=== PATIENT | female | born 1940 | race Caucasian/White ===

== ENCOUNTER → 2017-03-21 | Outpatient (CLI) | payer MEDICARE ==
[2017-03-21 11:54] LABS: CH 27.9; HCT 38.4 % (34.0-46.0); HDW 2.32; HGB 11.8 gm/dL (11.4-16.0); Hypochromasia Moderate; MCH 28.6 pg (25.0-35.0); MCHC 30.7 g/dL (31.0-37.0); MCV 93.2 fL (80.0-100.0); Mean Platelet Volume 6.6; RBC 4.12 m/uL (3.80-5.40); RDW 13.1 % (11.5-15.5); WBC 7.1 k/uL (3.8-10.6)
[2017-03-21 12:08] LABS: Partial Thromboplastin Time 23.2 sec (22.0-30.0); Prothrombin Time 10.2 sec (9.0-12.0)
[2017-03-21 12:19] LABS: ALT 33 U/L (9-52); AST 20 U/L (14-36); Alkaline Phosphatase 89 U/L (38-126); Anion Gap 8 mmol/L; Blood Urea Nitrogen 16 mg/dL (7-17); Calcium 9.7 mg/dL (8.4-10.2); Carbon Dioxide 30 mmol/L (22-30); Chloride 101 mmol/L (98-107); Glucose 103 mg/dL (74-99); Non-African American GFR(MDRD) >60 (>60 ml/min/1.73 sqM); Potassium 4.5 mmol/L (3.5-5.1); Sodium 139 mmol/L (137-145); Total Bilirubin 0.1 mg/dL (0.2-1.3); Total Protein 6.4 g/dL (6.3-8.2)
== END | disposition home or self-care (01) ==
LOC: LABPAT 10:52
PROVIDERS: ATTEND Orthopaedic Surgery
DX: Z01.812 Encounter for preprocedural laboratory examination (principal); Z79.01 Long term (current) use of anticoagulants
CPT/HCPCS: 36415; 80053; 85027; 85610; 85730; 87070

== ENCOUNTER → 2017-03-27 | Outpatient (CLI) | payer MEDICARE ==
[2017-03-27 13:58] LABS: Appearance,Urine Clear (Clear); Bilirubin,Urine Negative (Negative); Glucose,Urine (UA) Negative (Negative); Ketones,Urine Negative (Negative); Leukocyte Esterase,Urine Trace (Negative); Mucus,Urine Rare /hpf; Nitrite,Urine Negative (Negative); Particle Count 691; Protein,Urine Negative (Negative); Specific Gravity,Urine 1.006 (1.001-1.035); UA Billing (MACRO vs. MICRO) MICRO; Urobilinogen,Urine <2.0 mg/dL (<2.0); WBC,Urine 1 /hpf (0-5)
== END | disposition home or self-care (01) ==
LOC: LABWHC1 12:59
PROVIDERS: ATTEND Orthopaedic Surgery
DX: Z01.812 Encounter for preprocedural laboratory examination (principal); Z79.01 Long term (current) use of anticoagulants
CPT/HCPCS: 81001

== ENCOUNTER 2017-04-01 05:51 | Inpatient (IN) | payer MEDICARE ==
[2017-03-22 15:28] VITALS: BMI 37.5
[~2017-04-01 05:51] MED LIST: ACETAMINOPHEN TAB 500 MG TAB PO ONE; MELOXICAM 7.5 MG TAB PO ONE; ROPIVACAINE 246.25 MG, EPINEPHrine 0.5 MG, KETOROLAC 30 MG, cloNIDine HCL/PF 80 MCG, WA... MISCELLANE ONE; TRANEXAMIC ACID 1,000 MG in SODIUM CHLORIDE 0.9% 100 ML IVPB ONE; ceFAZolin 2 GM in SODIUM CHLORIDE 0.9% 100 ML IVPB ONE
[2017-04-01] MEDS ORDERED: HYDROmorphone 0.5 MG/0.5 ML SYRINGE IVP PRN ×2 (05:55→07:30)
[2017-04-01] MEDS ORDERED: LIDOCAINE 1% 20 ML VIAL (10MG/ML) FOR IV START INTRADERMA PRN (05:55)
[2017-04-01] MEDS ORDERED: ONDANSETRON 4 MG/2 ML VIAL IVP ONE (05:55)
[2017-04-01] MEDS ORDERED: fentaNYL (PF) 50 MCG/ML 20 ML VIAL IVP PRN (05:55)
[2017-04-01] MEDS ORDERED: MIDAZOLAM 2 MG/2 ML VIAL IV PRN (05:55)
[2017-04-01] MEDS: LACTATED RINGERS 1,000 ML IV SCH ×2 (06:54→23:42)
[2017-04-01 07:04] LABS: Glucose,Whole Blood 109 mg/dL (75-99)
[2017-04-01] MEDS ORDERED: DIAZEPAM 5 MG TAB PO PRN ×2 (07:30)
[2017-04-01] MEDS ORDERED: HYDROmorphone 1 MG/ML 1 ML SYRINGE IVP PRN (07:30)
[2017-04-01] MEDS ORDERED: HYDROcodone/APAP 7.5-325MG 1 EACH TAB PO PRN (07:30)
[2017-04-01] MEDS ORDERED: MAGNESIUM HYDROXIDE 2,400 MG/10 ML CUP PO PRN (07:30)
[2017-04-01] MEDS ORDERED: hydrOXYzine PAMOATE 25 MG CAP PO PRN (07:30)
[2017-04-01] MEDS ORDERED: NALOXONE 0.4 MG/ML 1 ML VIAL IV PRN (07:30)
[2017-04-01] MEDS ORDERED: TRANEXAMIC ACID 1,000 MG/10 ML VIAL ONE (07:35)
[2017-04-01] MEDS ORDERED: diphenhydrAMINE 50 MG/ML 1 ML VIAL ONE (07:35)
[2017-04-01] MEDS ORDERED: MIDAZOLAM 2 MG/2 ML VIAL ONE (07:35)
[2017-04-01] MEDS ORDERED: fentaNYL (PF) 50 MCG/ML 2 ML AMP ONE (07:35)
[2017-04-01] MEDS ORDERED: PROPOFOL 10 MG/ML 20 ML VIAL IV ONE (07:35)
[2017-04-01] MEDS ORDERED: SODIUM CHLORIDE 0.9% 100 ML BAG ONE (07:35)
[2017-04-01] MEDS ORDERED: ePHEDrine SULFATE/0.9% NACL/PF 50 MG/5 ML SYRINGE IV ONE (07:35)
[2017-04-01] MEDS ORDERED: PHENYLEPHRINE-0.9% NACL SYG 1 MG/10 ML SYRINGE ONE (07:35)
[2017-04-01] MEDS ORDERED: ceFAZolin 3,000 MG in SODIUM CHLORIDE 0.9% IRRIGATIO 3,000 ML IRRIGATION ONE (08:27)
[2017-04-01] MEDS ORDERED: LACTATED RINGERS 1,000 ML IV ONE (08:50)
--- NOTE | 2017-04-01 09:25 | P.OP ---
Date of Procedure: 04/01/17 Preoperative Diagnosis: Severe osteoarthritis left hip Postoperative Diagnosis: Severe osteoarthritis left hip Procedure(s) Performed: Left total hip arthroplasty with a direct anterior approach Implants: Blanc and nephew Polarstem size 1 standard Blanc & Nephew R3, 3 hole acetabular shell, 52 mm Blanc [employer] Nephew reflection 6.5 mm cancellus screw, 20 mm 2 Blanc [employer] Nephew R3, XLPE 20 acetabular liner Blanc & Nephew Oxinium femoral head 36 m, +0 All components were press-fit. The articulation is Oxinium on polyethylene. Anesthesia: spinal Surgeon: Glynn Freeman Turret Lathe Set Up Operator #1: Kari Marsh Estimated Blood Loss (ml): 50 Pathology: other (Femoral head) Condition: stable Disposition: PACU Indications for Procedure: After failure of conservative treatment we discussed the surgical and nonsurgical treatment options at length. Patient wishes to proceed with a total hip arthroplasty with a direct anterior approach. Complications specific to this procedure were discussed at length, including but not limited to infection, leg length discrepancy, dislocation, and nerve injury. Patient is aware of all these complications and informed consent was obtained Operative Findings: The operative findings are consistent with severe osteoarthritis of the left hip Description of Procedure: Patient was seen and evaluated in the preoperative area, consent was reviewed, and the surgical site was marked with a skin marker. Patient was then brought to the operating room and given prophylactic antibiotics intravenously. 1 g of Tranexamic acid was also given. A spinal anesthetic was administered by the anesthesia department. The patient was then placed on the [place] table with the bony prominences well-padded. The hip area was then prepped and draped in usual sterile fashion. A universal timeout was then performed, which confirmed the patient's name, surgical site, ALLERGIES, and procedure being performed. Next the incision site was located at 1 cm distal and 1 cm lateral to the anterior superior iliac spine. The skin and subcutaneous tissues were sharply incised. Incision was carefully dissected down to the fascia overlying the tensor fascia michaelle muscle. This fascia was then incised in line with the incision. Next, using blunt finger dissection, the tensor fascia michaelle muscle was dissected off its investing fascia. The muscle was then carefully retracted laterally with a cobra retractor over the lateral neck of the femur. Next, the circumflex vessels were identified and cauterized using the AquaMantis device. The anterior hip capsule was then exposed. The capsule was then opened and an inverted T fashion. Cobra retractors were then placed intracapsularly. The proximal femur was then visualized. The femoral neck was then osteotomized appropriate level above the lesser trochanter. Small amount of traction was placed with the [place] table. A small wedge of bone was then removed from the remaining femoral head. Next, using a corkscrew femoral head was easily removed from the acetabulum. On gross visual inspection, the femoral head had complete loss of articular cartilage in multiple periarticular osteophytes. Attention was then turned to the acetabulum. the acetabulum was exposed and any remaining labrum was excised. Sequential reaming of the acetabulum was performed using fluoroscopic guidance. When the appropriate size was reached, a trial was then placed. The position and fit of the trial was checked with fluoroscopy. The trial was then removed. Then, using fluoroscopic guidance, the final implant was impacted at 20 of anteversion and 40 of abduction, and fully seated in the acetabulum. 2 screws were then placed in the acetabulum. Again fluoroscopy was used to check position of the screws. Next, the liner was then impacted, with a 20 elevated liner located in the anterior superior quadrant. Component locking was confirmed. Attention was then directed to the femur. With the aid of the [place] table, the femur was externally rotated to approximately 130, extended, and abducted under the opposite leg. A side hook was then placed under the proximal femur, and the side hook elevator was used to elevate the proximal femur. Retractors were then placed. A capsular release was performed, as well as a release of the conjoined tendon, which afforded excellent visualization of the proximal femur. Next, a box osteotome was used to lateralize the proximal femur. A spare hand carding was then used to locate the femoral canal. Sequential broaching was then performed with appropriate size which afforded excellent fixation in the proximal femur. A trial was then placed with appropriate head and neck, and the hip was gently reduced with the aid of the [place] table. Fluoroscopy was then used to check position of the components, as well as to ensure equal leg lengths. The hip was then gently dislocated and the trials were then removed. Final implants were then impacted and the hip was again reduced. Final fluoroscopic x-rays confirmed that the components were in anatomic position, as well as equal leg lengths. The hip was also taken through range of motion, and found to be stable. The hip was then copiously irrigated with antibiotic solution with pulsatile lavage. The hip was then irrigated with Irrisept solution. The soft tissues were then injected with a ropivacaine solution, which consisted of 246.25 mg of ropivacaine, 0.5 mg of epinephrine, 30 mg of Toradol, 80 g of clonidine, and 48.45 mL of sterile water, for a total of 100 mL of fluid injected. A second dose of 1 g of Tranexamic acid was also given. the fascia was then closed with 2-0 strata fix suture. The subcutaneous tissue was closed with 3-0 Vicryl. The subcuticular tissue was closed with 3-0 strata fix suture. The skin was then closed with Dermabond tape. The patient was then transferred to the recovery room in stable condition. The graduate teaching assistant ARASH Trevizo was required due to the complexity of surgery, and the need for skilled certified surgical tech/first assistant for positioning, draping, exposure, retraction, and closure of the wound.
--- NOTE | 2017-04-01 09:59 | FL ---
EXAMINATION TYPE: FL guidance operating room DATE OF EXAM: 04/01/2017 CLINICAL HISTORY: Hip pain TECHNIQUE: Fluoroscopy. COMPARISON: None. FINDINGS/IMPRESSION: Fluoroscopic guidance was provided during procedure performed by Dr. Freeman. A total of 26 seconds of fluoroscopic time was utilized during the procedure and 2 spot images was a cquired.
--- NOTE | 2017-04-01 10:03 | XR ---
EXAMINATION TYPE: XR Hip Limited LT, 2 fluoroscopic views. DATE OF EXAM: 04/01/2017 COMPARISON: NONE HISTORY: 76-year-old female anterior left hip replacement FINDINGS: 2 views demonstrating left hip total arthroplasty. One images centered over the lower midline pelvis. A right hip total arthroplasty is partially visualized. IMPRESSION: Intraoperative fluoroscopy for left hip total arthroplasty.
--- NOTE | 2017-04-01 10:13 | XR ---
EXAMINATION TYPE: XR Hip Limited LT DATE OF EXAM: 04/01/2017 COMPARISON: NONE HISTORY: 76-year-old female status post hip surgery, assess surgical alignment TECHNIQUE: Single portable AP view FINDINGS: Image shows placement of total left hip arthroplasty. Both acetabular cup and femoral short stem comp onents are well seated without periprosthetic fracture. Alignment grossly anatomic. Soft tissue air r elated to recent operation. IMPRESSION: Uncomplicated postoperative appearance left total hip arthroplasty.
[2017-04-01] MEDS: SODIUM CHLORIDE 0.9% 1,000 ML IV SCH ×2 (10:39→11:03)
[2017-04-01] MEDS: HYDROcodone/APAP 7.5-325MG 1 EACH TAB PO PRN ×3 (11:39→22:41)
[2017-04-01] MEDS: HYDROmorphone 0.5 MG/0.5 ML SYRINGE IVP PRN ×2 (12:32→14:40)
[2017-04-01] MEDS: ceFAZolin 2 GM in SODIUM CHLORIDE 0.9% 100 ML IVPB SCH ×2 (14:10→22:42)
--- NOTE | 2017-04-01 16:01 | P.CONS ---
History of Present Illness - Reason for Consult Adrenal insufficiency - History of Present Illness Patient is a pleasant 74-year-old female admitted for elective left hip arthroplasty anterior approach, does have history of 80 renal insufficiency secondary to long-term use of prednisone. Patient at this point of time denied any fever, chills her pain is well-controlled DVT prophylaxis as per primary service. Patient doesn't have a Villalba catheter did not pass gas yet postoperative day 0 no labs available at this time. Review of Systems REVIEW OF SYSTEMS: CONSTITUTIONAL: No fever, no malaise, no fatigue. HEENT: No recent visual problems or hearing problems. Denied any sore throat. CARDIOVASCULAR: No chest pain, orthopnea, PND, no palpitations, no syncope. PULMONARY: No shortness of breath, no cough, no hemoptysis. GASTROINTESTINAL: No diarrhea, no nausea, no vomiting, no abdominal pain. Normoactive bowel sounds. NEUROLOGICAL: No headaches, no weakness, no numbness. HEMATOLOGICAL: Denies any bleeding or petechiae. GENITOURINARY: Denies any burning micturition, frequency, or urgency. MUSCULOSKELETAL/RHEUMATOLOGICAL: Denies any joint pain, swelling, or any muscle pain. ENDOCRINE: Denies any polyuria or polydipsia. The rest of the 14-point review of systems is negative. Past Medical History Past Medical History: COPD, GERD/Reflux, Hearing Disorder / Deafness, Hypertension, Osteoarthritis (OA) Additional Past Medical History / Comment(s): HX PARATHYROID PROB, UNDER CONTROL. HX BENIGN COLON TUMOR; DIVERTICULITIS. VARICOSE VEINS. History of Any Multi-Drug Resistant Organisms: None Reported Past Surgical History: Bowel Resection, Ear Surgery, Hysterectomy, Joint Replacement Additional Past Surgical History / Comment(s): TOTAL RT HIP 2000. 2 BOWEL RESECTION. LT EAR SURG. Ant TLH Past Anesthesia/Blood Transfusion Reactions: No Reported Reaction Past Psychological History: No Psychological Hx Reported Smoking Status: Former smoker Past Alcohol Use History: None Reported Additional Past Alcohol Use History / Comment(s): SMOKED 40+ YEARS, 1 PPD, QUIT 2005. Past Drug Use History: None Reported - Past Family History Father Family Medical History: Cancer Medications and Allergies Home Medications Medication Instructions Recorded Confirmed Type Albuterol Inhaler [Ventolin Hfa 1 - 2 puff INHALATION RT-Q6H PRN 03/22/17 History Inhaler] Albuterol Nebulized [Ventolin 2.5 mg INHALATION RT-BID 03/22/17 04/01/17 History Nebulized] Aspirin EC [Ecotrin Low Dose] 81 mg PO DAILY 03/22/17 04/01/17 History Budesonide [Pulmicort] 0.5 mg INHALATION RT-BID 03/22/17 04/01/17 History Cephalexin [Keflex] 500 mg PO DIRECTED PRN 03/22/17 04/01/17 History Cholecalciferol [Vitamin D3] 5,000 unit PO TUFR 03/22/17 04/01/17 History Enalapril [Vasotec] 5 mg PO BID 03/22/17 04/01/17 History Furosemide [Lasix] 20 mg PO DAILY 03/22/17 04/01/17 History HYDROcodone/APAP 5-325MG [[place] 1 tab PO TID PRN 03/22/17 04/01/17 History 5-325] Hydrocortisone [Cortef] 20 mg PO DAILY 03/22/17 04/01/17 History Multivitamins, Thera [Multivitamin 1 tab PO DAILY 03/22/17 04/01/17 History (formulary)] Ranitidine HCl 150 mg PO HS 03/22/17 04/01/17 History Salmeterol Xinafoate [Serevent 1 puff INHALATION RT-BID 03/22/17 04/01/17 History Diskus] Theophylline 24 Hour [Francis-24] 300 mg PO BID 03/22/17 04/01/17 History Tiotropium Wallace [Spiriva] 1 cap INHALATION RT-DAILY 03/22/17 04/01/17 History traMADol HCL [Ultram] 50 mg PO BID PRN 03/22/17 04/01/17 History Allergies Allergy/AdvReac Type Severity Reaction Status Date / Time No Known Allergies Allergy Verified 04/01/17 09:46 Physical Exam Vitals: Vital Signs Temp Pulse Pulse Pulse Resp BP Pulse Ox 04/01/17 15:55 97.8 F 70 15 106/64 99 04/01/17 12:45 112/53 04/01/17 12:15 123/60 04/01/17 11:45 64 159/73 04/01/17 11:30 65 166/71 04/01/17 11:15 146/64 04/01/17 11:00 61 115/67 10/16/17 10:45 61 16 137/62 100 04/01/17 10:30 68 18 117/57 100 04/01/17 10:15 56 L 18 122/60 04/01/17 10:00 64 18 125/58 100 04/01/17 09:45 96.7 F L 68 16 115/72 98 04/01/17 06:30 97.7 F 73 18 161/58 96 Intake and Output 04/01/17 04/01/17 04/01/17 06:59 14:59 22:59 Intake Total 200 996 Output Total 200 Balance 200 796 Intake: IV 200 996 Sodium Chloride 0.9% 1, 195 000 ml @ 65 mls/hr IV . [id number] ROSANNA Rx#:[id number] Output: Urine 150 Estimated Blood Loss 50 Other: Weight 92.986 kg Patient Weight 04/02/17 06:59 Weight 92.986 kg PHYSICAL EXAMINATION: GENERAL: The patient is alert and oriented x3, not in any acute distress. Well developed, well nourished. HEENT: Pupils are round and equally reacting to light. EOMI. No scleral icterus. No conjunctival pallor. Normocephalic, atraumatic. No pharyngeal erythema. No thyromegaly. CARDIOVASCULAR: S1 and S2 present. No murmurs, rubs, or gallops. PULMONARY: Chest is clear to auscultation, no wheezing or crackles. ABDOMEN: Soft, nontender, nondistended, normoactive bowel sounds. No palpable organomegaly. MUSCULOSKELETAL: Deferred to orthopedic surgery EXTREMITIES: No cyanosis, clubbing, or pedal edema. NEUROLOGICAL: Gross neurological examination did not reveal any focal deficits. SKIN: No rashes. Results Labs: Abnormal Lab Results - Last 24 Hours (Table) 04/01/17 Range/Units 07:02 POC Glucose (mg/dL) 109 H (75-99) mg/dL Assessment and Plan Plan: #1 postoperative day 0 left hip arthroplasty: Pain management and DVT prophylaxis as per primary service. #2 COPD without any acute exacerbation at this point of time. 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 #4 hypertension: Hold off on KEYSHAWN inhibitor to avoid perioperative hypotension continue with beta bahman. #5 severe osteoarthritis #6 obesity Thank you for letting me participate in this patient's care continue to follow the patient on as-needed basis.
[2017-04-01] MEDS: IPRATROPIUM 0.5 MG/2.5 ML NEBU INHALATION SCH (19:48)
[2017-04-01] MEDS: BUDESONIDE 0.5 MG/2 ML NEBU INHALATION SCH (19:48)
[2017-04-01] MEDS: ALBUTEROL NEBULIZED 2.5 MG/3 ML INHALATION PRN (19:48)
[2017-04-01] MEDS: FORMOTEROL FUMARATE 20 MCG/2 ML NEBU INHALATION SCH (19:48)
[2017-04-01] MEDS: SENNOSIDES-DOCUSATE SODIUM 1 EACH TAB PO SCH (20:25)
[2017-04-01] MEDS: ASPIRIN 325 MG TAB PO SCH (20:27)
[2017-04-01] MEDS: THEOPHYLLINE 24 HOUR 300 MG CAP.ER.24H PO SCH (20:27)
[2017-04-02] MEDS: ONDANSETRON 4 MG/2 ML VIAL IVP PRN (05:11)
[2017-04-02] MEDS: HYDROmorphone 0.5 MG/0.5 ML SYRINGE IVP PRN (07:10)
[2017-04-02] MEDS: FORMOTEROL FUMARATE 20 MCG/2 ML NEBU INHALATION SCH ×2 (07:14→21:24)
[2017-04-02] MEDS: IPRATROPIUM 0.5 MG/2.5 ML NEBU INHALATION SCH ×4 (07:14→21:24)
[2017-04-02] MEDS: BUDESONIDE 0.5 MG/2 ML NEBU INHALATION SCH ×3 (07:14→21:24)
[2017-04-02] MEDS ORDERED: METOCLOPRAMIDE 5 MG/ML 2 ML VIAL IVP PRN (07:17)
[2017-04-02] MEDS: HYDROcodone/APAP 7.5-325MG 1 EACH TAB PO PRN ×3 (07:27→18:51)
[2017-04-02 08:18] LABS: Basophils # (A) 0.1 k/uL (0-0.2); Basophils % (A) 1 %; CH 28.4; CHCM 30.4; Eosinophils # (A) 0.4 k/uL (0-0.7); Eosinophils % (A) 5 %; HCT 36.4 % (34.0-46.0); HDW 2.22; HGB 10.9 gm/dL (11.4-16.0); Hypochromasia Slight; Luc % (Auto) 3; Lymphocytes % (A) 13 %; MCH 28.2 pg (25.0-35.0); MCHC 30.1 g/dL (31.0-37.0); Mean Platelet Volume 6.3; Monocytes # (A) 0.5 k/uL (0-1.0); Monocytes % (A) 6 %; Neutrophils # (A) 5.6 k/uL (1.3-7.7); Neutrophils % (A) 73 %; RBC 3.87 m/uL (3.80-5.40); RDW 13.5 % (11.5-15.5); WBC 7.7 k/uL (3.8-10.6); WBC (Perox) 7.93
[2017-04-02] MEDS: ASPIRIN 325 MG TAB PO SCH ×2 (08:33→20:36)
[2017-04-02] MEDS: THEOPHYLLINE 24 HOUR 300 MG CAP.ER.24H PO SCH ×2 (08:33→20:36)
[2017-04-02] MEDS: MELOXICAM 7.5 MG TAB PO SCH (08:33)
[2017-04-02] MEDS ORDERED: HYDROCORTISONE 10 MG TAB PO SCH (09:00)
[2017-04-02] MEDS ORDERED: NON-FORMULARY DRUG (Aspirin Ec 81 MG) PO SCH (09:00)
[2017-04-02] MEDS: SODIUM CHLORIDE 0.9% 1,000 ML IV SCH (09:47)
--- NOTE | 2017-04-02 09:54 | P.PN ---
Subjective Progress Note Date: 04/02/17 This is a 76-year-old female who is status post left total hip arthroplasty. This is postoperative day #1. Patient is seen and evaluated at bedside with Dr. Glynn Fremean. Patient admits to some mild nausea from the pain medication but otherwise has no new complaints today. Objective - Vital Signs Vital signs: Vital Signs Temp 97.6 F 04/02/17 07:07 Pulse 79 04/02/17 07:07 Resp 18 04/02/17 07:30 BP 133/60 04/02/17 07:07 Pulse Ox 94 L 04/02/17 07:07 Intake & Output 04/01/17 04/02/17 04/02/17 18:59 06:59 18:59 Intake Total 996 1280 Output Total 200 1 Balance 796 1279 Weight 92.986 kg Intake: IV 996 130 Sodium Chloride 0.9% 1, 195 130 000 ml @ 65 mls/hr IV . [id number] ROSANNA Rx#:[id number] Intake, IV Titration 650 Amount Sodium Chloride 0.9% 1, 650 000 ml @ 65 mls/hr IV . [id number] ROSANNA Rx#:[id number] Oral 500 Output: Urine 150 1 Estimated Blood Loss 50 Other: Voiding Method Toilet # Voids 1 1 - Exam Vital signs are stable. Patient is in no acute distress and is alert and oriented 3. Calf is soft and nontender. Dressing is clean, dry, and intact. Neurovascular status intact. Patient has full foot and ankle motion. - Labs CBC & Chem 7: 04/02/17 06:55 Labs: Abnormal Lab Results - Last 24 Hours (Table) 04/02/17 Range/Units 06:55 Hgb 10.9 L (11.4-16.0) gm/dL MCHC 30.1 L (31.0-37.0) g/dL Assessment and Plan (1) Primary osteoarthritis of left hip Status: Acute (2) S/P total hip arthroplasty Status: Acute Plan: Continue routine postop care. Continue antocoagulation. Weightbearing as tolerated with a walker Daily dressing changes, keep incision clean and dry Possible discharge to rehab .
[2017-04-02] MEDS ORDERED: CEPHALEXIN 500 MG CAP PO PRN (15:53)
[2017-04-02] MEDS ORDERED: IPRATROPIUM-ALBUTEROL 3 ML NEB INHALATION PRN ×2 (15:54)
--- NOTE | 2017-04-02 16:09 | P.PN ---
Subjective Progress Note Date: 04/02/17 Progress note being dictated for Dr. Tucker. Interval history:Patient is a pleasant 74-year-old female admitted for elective left hip arthroplasty anterior approach, does have history of 81 renal insufficiency secondary to long-term use of prednisone. Patient at this point of time denied any fever, chills her pain is well-controlled DVT prophylaxis as per primary service. Patient doesn't have a Villalba catheter did not pass gas yet postoperative day 0 no labs available at this time. 04/02/2017: Early this morning had a headache, mild nausea which has subsided. Pain controlled. Passing flatus, no bowel movement. Good diet intake. Maintaining O2 sats of 94% on 3 L nasal cannula; patient normally wears 2 L at home. Vital signs stable. Afebrile. Objective - Vital Signs Vital signs: Vital Signs Temp 97.6 F 04/02/17 07:07 Pulse 71 04/02/17 12:56 Resp 18 04/02/17 07:30 BP 133/60 04/02/17 07:07 Pulse Ox 94 L 04/02/17 07:07 Intake & Output 04/01/17 04/02/17 04/02/17 18:59 06:59 18:59 Intake Total 996 1280 Output Total 200 1 Balance 796 1279 Weight 92.986 kg Intake: IV 996 130 Sodium Chloride 0.9% 1, 195 130 000 ml @ 65 mls/hr IV . [id number] ROSANNA Rx#:[id number] Intake, IV Titration 650 Amount Sodium Chloride 0.9% 1, 650 000 ml @ 65 mls/hr IV . [id number] ROSANNA Rx#:[id number] Oral 500 Output: Urine 150 1 Estimated Blood Loss 50 Other: Voiding Method Toilet # Voids 1 1 1 - Exam PHYSICAL EXAM: VITAL SIGNS: [As above] GENERAL: Sitting up in bed, no acute distress HEENT: Conjunctivae normal. eyes normal. Oral mucosa moist NECK: No JVD. No thyroid enlargement. No LNs CARDIOVASCULAR: S1, S2 muffled. No murmur RESPIRATION: Breath sounds diminished in the bases. No rhonchi or crackles. No bronchial breathing. ABDOMEN: Soft, nontender . No guarding. no masses palpable. Bowel sounds heard. MUSCULOSKELETAL: Deferred to orthopedic surgeon EXTREMITIES: No cyanosis, clubbing or pedal edema PSYCHIATRY: Alert and oriented -3, mood and affect normal. NERVOUS SYSTEM: Cranial N 2-12 grossly normal. Moves all 4 limbs. Diffuse weakness No focal deficits. No sensory deficit. Skin: no ulcer no rash - Labs CBC & Chem 7: 04/02/17 06:55 Labs: Abnormal Lab Results - Last 24 Hours (Table) 04/02/17 Range/Units 06:55 Hgb 10.9 L (11.4-16.0) gm/dL MCHC 30.1 L (31.0-37.0) g/dL Assessment and Plan Assessment: #1 status post left hip arthroplasty: Pain management and DVT prophylaxis as per primary service. #2 COPD without any acute exacerbation at this point of time. 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 #4 hypertension: Hold off on KEYSHAWN inhibitor to avoid perioperative hypotension continue with beta bahman. #5 severe osteoarthritis #6 obesity, BMI is 37.5 Plan: Continue current medication regime ,monitoring and symptomatic treatment. Aggressive pulmonary toileting. Discharge planning in progress for subacute rehab as per orthopedics, possibly tomorrow. The impression and plan of care has been dictated as directed. : I performed a history and examination of this patient, discussed the same with the dictator. I agree with the dictator's note ,documented as a scribe. Any additional findings or plans will be noted.
[2017-04-02] MEDS: FAMOTIDINE 20 MG TAB PO SCH (17:10)
[2017-04-02] MEDS: SENNOSIDES-DOCUSATE SODIUM 1 EACH TAB PO SCH (20:37)
[2017-04-02] MEDS: ALBUTEROL NEBULIZED 2.5 MG/3 ML INHALATION PRN (21:24)
[2017-04-03] MEDS: ONDANSETRON 4 MG/2 ML VIAL IVP PRN (05:21)
[2017-04-03] MEDS: LACTATED RINGERS 1,000 ML IV SCH (05:30)
[2017-04-03] MEDS: SODIUM CHLORIDE 0.9% 1,000 ML IV SCH ×2 (05:30→23:30)
[2017-04-03] MEDS: BUDESONIDE 0.5 MG/2 ML NEBU INHALATION SCH ×2 (07:26→19:53)
[2017-04-03] MEDS: IPRATROPIUM 0.5 MG/2.5 ML NEBU INHALATION SCH ×4 (07:26→19:53)
[2017-04-03] MEDS: FORMOTEROL FUMARATE 20 MCG/2 ML NEBU INHALATION SCH ×2 (07:30→19:53)
[2017-04-03] MEDS: HYDROCORTISONE 10 MG TAB PO SCH ×3 (08:22→13:09)
[2017-04-03] MEDS: FUROSEMIDE 20 MG TAB PO SCH (08:23)
[2017-04-03] MEDS: MELOXICAM 7.5 MG TAB PO SCH (08:23)
[2017-04-03] MEDS: ASPIRIN 325 MG TAB PO SCH ×2 (08:23→21:57)
[2017-04-03] MEDS: THEOPHYLLINE 24 HOUR 300 MG CAP.ER.24H PO SCH ×2 (08:24→20:29)
--- NOTE | 2017-04-03 09:26 | P.PN ---
Subjective Progress Note Date: 04/03/17 This is a 76-year-old female who is status post left total hip arthroplasty. This is postoperative day #2. Patient is seen and evaluated at bedside with Dr. Glynn Freeman. Patient admits to some continued soreness of the left hip but states this is tolerable. Patient states she has been up and walking with physical therapy and she is feeling better today. Patient has no new complaints today. Objective - Vital Signs Vital signs: Vital Signs Temp 98.6 F 04/03/17 01:00 Pulse 104 H 04/03/17 08:12 Resp 20 04/03/17 08:11 BP 121/54 04/03/17 08:12 Pulse Ox 93 L 04/03/17 08:11 Intake & Output 04/02/17 04/03/17 04/03/17 18:59 06:59 18:59 Intake Total 520 Balance 520 Intake: IV 520 Sodium Chloride 0.9% 1, 520 000 ml @ 65 mls/hr IV . [id number] ROSANNA Rx#:[id number] Other: Voiding Method Toilet # Voids 1 3 - Exam Vital signs are stable. Patient is in no acute distress and is alert and oriented 3. Calf is soft and nontender. Dressing is clean, dry, and intact. Neurovascular status intact. Patient has full foot and ankle motion. - Labs CBC & Chem 7: 04/02/17 06:55 Assessment and Plan (1) Primary osteoarthritis of left hip Current Visit: Yes Status: Acute Code(s): M16.12 - UNILATERAL PRIMARY OSTEOARTHRITIS, LEFT HIP SNOMED Code(s): 340556055 (2) S/P total hip arthroplasty Current Visit: Yes Status: Acute Code(s): Z96.649 - PRESENCE OF UNSPECIFIED ARTIFICIAL HIP JOINT SNOMED Code(s): 573387119421 Plan: Continue routine postop care. Continue antocoagulation. Weightbearing as tolerated with a walker Daily dressing changes, keep incision clean and dry Likely discharge to rehab .
[2017-04-03] MEDS: traMADol 50 MG TAB PO PRN (11:27)
[2017-04-03 13:18] LABS: Appearance,Urine Clear (Clear); Bilirubin,Urine Negative (Negative); Glucose,Urine (UA) Negative (Negative); Ketones,Urine Negative (Negative); Leukocyte Esterase,Urine Negative (Negative); Nitrite,Urine Negative (Negative); Protein,Urine Negative (Negative); Specific Gravity,Urine 1.004 (1.001-1.035); UA Billing (MACRO vs. MICRO) CHEM; Urobilinogen,Urine <2.0 mg/dL (<2.0)
--- NOTE | 2017-04-03 13:55 | XR ---
EXAMINATION TYPE: XR chest 2V DATE OF EXAM: 04/03/2017 COMPARISON: NONE INDICATION: Elevated temperature TECHNIQUE: Frontal and lateral views of the chest are obtained. FINDINGS: The heart size is normal. The pulmonary vasculature is normal. The lungs are clear. IMPRESSION: 1. No acute pulmonary process.
[2017-04-03 14:07] LABS: Basophils # (A) 0.1 k/uL (0-0.2); Basophils % (A) 1 %; CH 28.6; CHCM 30.7; Eosinophils # (A) 0.1 k/uL (0-0.7); Eosinophils % (A) 1 %; HCT 34.2 % (34.0-46.0); HDW 2.22; HGB 10.3 gm/dL (11.4-16.0); Hypochromasia Slight; Luc # (Auto) 0.16; Luc % (Auto) 2; Lymphocytes # (A) 0.7 k/uL (1.0-4.8); Lymphocytes % (A) 7 %; MCH 28.1 pg (25.0-35.0); MCV 93.7 fL (80.0-100.0); Mean Platelet Volume 6.6; Monocytes # (A) 0.6 k/uL (0-1.0); Monocytes % (A) 6 %; Neutrophils % (A) 84 %; RBC 3.65 m/uL (3.80-5.40); RDW 13.3 % (11.5-15.5); WBC 10.6 k/uL (3.8-10.6); WBC (Perox) 10.45
[2017-04-03 14:11] LABS: Anion Gap 6 mmol/L; Blood Urea Nitrogen 12 mg/dL (7-17); Calcium 9.5 mg/dL (8.4-10.2); Carbon Dioxide 33 mmol/L (22-30); Chloride 93 mmol/L (98-107); Glucose 194 mg/dL (74-99); Magnesium 1.5 mg/dL (1.6-2.3); Non-African American GFR(MDRD) >60 (>60 ml/min/1.73 sqM); Potassium 4.4 mmol/L (3.5-5.1); Sodium 132 mmol/L (137-145)
[2017-04-03] MEDS ORDERED: Magnesium Replacement Protocol 1 EACH MISC MISCELLANE PRN (16:29)
[2017-04-03] MEDS: FAMOTIDINE 20 MG TAB PO SCH (17:29)
[2017-04-03] MEDS: NYSTATIN 100,000 UNIT/ML SUSP 500,000 UNIT/5 ML CUP PO SCH ×2 (17:30→20:31)
--- NOTE | 2017-04-03 18:10 | P.PN ---
Subjective Progress Note Date: 04/03/17 Progress note being dictated for Dr. Tucker. Interval history:Patient is a pleasant 74-year-old female admitted for elective left hip arthroplasty anterior approach, does have history of 80 renal insufficiency secondary to long-term use of prednisone. Patient at this point of time denied any fever, chills her pain is well-controlled DVT prophylaxis as per primary service. Patient doesn't have a Villalba catheter did not pass gas yet postoperative day 0 no labs available at this time. 04/02/2017: Early this morning had a headache, mild nausea which has subsided. Pain controlled. Passing flatus, no bowel movement. Good diet intake. Maintaining O2 sats of 94% on 3 L nasal cannula; patient normally wears 2 L at home. Vital signs stable. Afebrile. 04/03/2017) ambulated in hallway with physical therapy, tolerating increase in exertion well, denies lightheadedness dizziness or focal deficits. No bowel movement, passing flatus. Denies chest pain, palpitations or increased shortness of breath. Denies cough. T-max 100.6, normal WBC. Magnesium 1.5. Pain controlled. Objective - Vital Signs Vital signs: Vital Signs Temp 98 F 04/03/17 15:21 Pulse 76 04/03/17 15:33 Resp 17 04/03/17 15:21 BP 120/71 04/03/17 15:21 Pulse Ox 95 04/03/17 15:21 Intake & Output 04/02/17 04/03/17 04/03/17 18:59 06:59 18:59 Intake Total 520 Balance 520 Intake: IV 520 Sodium Chloride 0.9% 1, 520 000 ml @ 65 mls/hr IV . [id number] [facility] Rx#:[id number] Other: Voiding Method Toilet Toilet # Voids 1 3 - Exam PHYSICAL EXAM: VITAL SIGNS: [As above] GENERAL: Sitting up at side of bed, no acute distress HEENT: Conjunctivae normal. eyes normal. Oral mucosa moist, mild thrush NECK: No JVD. No thyroid enlargement. No LNs CARDIOVASCULAR: S1, S2 muffled. No murmur RESPIRATION: Breath sounds diminished in the bases. No rhonchi or crackles. ABDOMEN: Soft, nontender . No guarding. no masses palpable. Bowel sounds heard. MUSCULOSKELETAL: Deferred to orthopedic surgeon EXTREMITIES: No cyanosis, clubbing or pedal edema PSYCHIATRY: Alert and oriented -3, mood and affect normal. NERVOUS SYSTEM: Cranial N 2-12 grossly normal. Moves all 4 limbs. Diffuse weakness No focal deficits. No sensory deficit. - Labs CBC & Chem 7: 04/03/17 13:26 04/03/17 13:26 Labs: Abnormal Lab Results - Last 24 Hours (Table) 04/03/17 04/03/17 Range/Units 13:26 13:26 RBC 3.65 L (3.80-5.40) m/uL Hgb 10.3 L (11.4-16.0) gm/dL MCHC 30.0 L (31.0-37.0) g/dL Neutrophils # 9.0 H (1.3-7.7) k/uL Lymphocytes # 0.7 L (1.0-4.8) k/uL Sodium 132 L (137-145) mmol/L Chloride 93 L (98-107) mmol/L Carbon Dioxide 33 H (22-30) mmol/L Glucose 194 H (74-99) mg/dL Magnesium 1.5 L (1.6-2.3) mg/dL Assessment and Plan Assessment: #1 status post left hip arthroplasty: Pain management and DVT prophylaxis as per primary service. #2 COPD without any acute exacerbation at this point of time. 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 #4 hypertension: Hold off on KEYSHAWN inhibitor to avoid perioperative hypotension continue with beta bahman. #5 severe osteoarthritis #6 obesity, BMI is 37.5 Plan: Continue current medication regime ,monitoring and symptomatic treatment. Aggressive pulmonary toileting. Pancultured given fever, chest x-ray ordered. Discharge planning in progress for subacute rehab as per orthopedics, possibly tomorrow. The impression and plan of care has been dictated as directed. : I performed a history and examination of this patient, discussed the same with the dictator. I agree with the dictator's note ,documented as a scribe. Any additional findings or plans will be noted.
[2017-04-03] MEDS: MAGNESIUM SULFATE-D5W PMX 1 GM in DEXTROSE/WATER 1 100ML.BAG IVPB SCH ×2 (19:16→21:57)
[2017-04-03] MEDS: ALBUTEROL NEBULIZED 2.5 MG/3 ML INHALATION PRN (19:53)
[2017-04-03] MEDS: SENNOSIDES-DOCUSATE SODIUM 1 EACH TAB PO SCH (20:29)
[2017-04-04 06:54] LABS: Basophils % (A) 1 %; CH 28.3; CHCM 30.9; Eosinophils # (A) 0.3 k/uL (0-0.7); Eosinophils % (A) 4 %; HCT 32.7 % (34.0-46.0); HDW 2.24; Hypochromasia Slight; Luc # (Auto) 0.23; Luc % (Auto) 3; Lymphocytes # (A) 1.1 k/uL (1.0-4.8); Lymphocytes % (A) 13 %; MCH 28.1 pg (25.0-35.0); MCHC 30.6 g/dL (31.0-37.0); MCV 92.1 fL (80.0-100.0); Mean Platelet Volume 6.6; Monocytes # (A) 0.6 k/uL (0-1.0); Monocytes % (A) 7 %; Neutrophils # (A) 6.3 k/uL (1.3-7.7); Neutrophils % (A) 73 %; RBC 3.55 m/uL (3.80-5.40); RDW 13.4 % (11.5-15.5); WBC 8.6 k/uL (3.8-10.6); WBC (Perox) 8.19
[2017-04-04 07:19] VITALS: BP 134/73; RESP 18; TEMP 98.5
[2017-04-04] MEDS: IPRATROPIUM 0.5 MG/2.5 ML NEBU INHALATION SCH ×2 (08:04→12:24)
[2017-04-04] MEDS: FORMOTEROL FUMARATE 20 MCG/2 ML NEBU INHALATION SCH (08:04)
[2017-04-04] MEDS: BUDESONIDE 0.5 MG/2 ML NEBU INHALATION SCH (08:04)
--- NOTE | 2017-04-04 08:46 | P.DS ---
Providers Date of admission: 04/01/17 05:51 Expected date of discharge: 04/04/17 Attending physician: Glynn Freeman Consults: 04/01/17 07:30 Consult Physician Routine Consulting Provider: Corina Almaguer Consult Reason/Comments: medical management Do you want consulting provider notified?: Yes Primary care physician: Dorene Longo - Discharge Diagnosis(es) (1) Primary osteoarthritis of left hip Current Visit: Yes Status: Acute (2) S/P total hip arthroplasty Current Visit: Yes Status: Acute Hospital Course: This is a 76-year-old female with known history of degenerative arthritis of the left hip. The patient presents for evaluation. After discussion and consideration patient elects to proceed with total hip arthroplasty. The patient is seen preoperatively by Dr. Freeman and cleared for surgery. Patient is admitted to [facility] on 04/01/2017 for total hip arthroplasty. The procedures performed without complication or sequelae. The patient is doing well postoperatively. Labs and vital signs are stable on day of discharge. On day of discharge patient's hip incision is healing well. There is minimal erythema. There is no drainage noted at this time. There is minimal soft tissue swelling to the hip and thigh. Patient has full foot and ankle motion without difficulty or pain. Neurovascular status to the left lower extremity is intact. Patient is discharged to rehab in good condition. Please see med rec for accurate list of home medications. Plan - Discharge Summary New Discharge Prescriptions: New Aspirin 325 mg PO BID #60 tab HYDROcodone/APAP 7.5-325MG [[place] 7.5-325] 1 - 2 tab PO Q4-6H PRN #90 tab PRN Reason: Pain Sennosides-Docusate Sodium [Senokot-S] 1 tab PO BID #60 tablet No Action Cholecalciferol [Vitamin D3] 5,000 unit PO TUFR Cephalexin [Keflex] 500 mg PO DIRECTED PRN PRN Reason: SURGERY OR DENTAL PROC traMADol HCL [Ultram] 50 mg PO BID PRN PRN Reason: Pain HYDROcodone/APAP 5-325MG [[place] 5-325] 1 tab PO TID PRN PRN Reason: Pain Tiotropium [place] [Spiriva] 1 cap INHALATION RT-DAILY Theophylline 24 Hour [Fracnis-24] 300 mg PO BID Ranitidine HCl 150 mg PO 1700 Furosemide [Lasix] 20 mg PO DAILY Salmeterol Xinafoate [Serevent Diskus] 1 puff INHALATION RT-BID Enalapril [Vasotec] 5 mg PO BID Aspirin EC [Ecotrin Low Dose] 81 mg PO DAILY Hydrocortisone [Cortef] 15 mg PO 0800 Budesonide [Pulmicort] 0.5 mg INHALATION RT-BID Albuterol Nebulized [Ventolin Nebulized] 2.5 mg INHALATION RT-BID Albuterol Inhaler [Ventolin Hfa Inhaler] 1 - 2 puff INHALATION RT-Q6H PRN PRN Reason: COPD Multivitamins, Thera [Multivitamin (formulary)] 1 tab PO DAILY Hydrocortisone [Cortef] 5 mg PO 1200 Discharge Medication List Albuterol Inhaler [Ventolin Hfa Inhaler] 1 - 2 puff INHALATION RT-Q6H PRN [History] Albuterol Nebulized [Ventolin Nebulized] 2.5 mg INHALATION RT-BID 03/22/17 [ History] Aspirin EC [Ecotrin Low Dose] 81 mg PO DAILY 03/22/17 [History] Budesonide [Pulmicort] 0.5 mg INHALATION RT-BID 03/22/17 [History] Cephalexin [Keflex] 500 mg PO DIRECTED PRN 03/22/17 [History] Cholecalciferol [Vitamin D3] 5,000 unit PO TUFR 03/22/17 [History] Enalapril [Vasotec] 5 mg PO BID 03/22/17 [History] Furosemide [Lasix] 20 mg PO DAILY 03/22/17 [History] HYDROcodone/APAP 5-325MG [[place] 5-325] 1 tab PO TID PRN 03/22/17 [History] Hydrocortisone [Cortef] 15 mg PO 0800 03/22/17 [History] Multivitamins, Thera [Multivitamin (formulary)] 1 tab PO DAILY 03/22/17 [History ] Ranitidine HCl 150 mg PO 1700 03/22/17 [History] Salmeterol Xinafoate [Serevent Diskus] 1 puff INHALATION RT-BID 03/22/17 [ History] Theophylline 24 Hour [Francis-24] 300 mg PO BID 03/22/17 [History] Tiotropium [place] [Spiriva] 1 cap INHALATION RT-DAILY 03/22/17 [History] traMADol HCL [Ultram] 50 mg PO BID PRN 03/22/17 [History] Hydrocortisone [Cortef] 5 mg PO 1200 04/02/17 [History] Aspirin 325 mg PO BID #60 tab 04/04/17 [Rx] HYDROcodone/APAP 7.5-325MG [[place] 7.5-325] 1 - 2 tab PO Q4-6H PRN #90 tab [Rx] Sennosides-Docusate Sodium [Senokot-S] 1 tab PO BID #60 tablet 04/04/17 [Rx] Follow up Appointment(s)/Referral(s): Glynn Freeman DO [Doctor of Osteopathic Medicine] - 2 Weeks Activity/Diet/Wound Care/Special Instructions: Weightbearing as tolerated with walker May shower after 2 days if no drainage from the incision Follow-up with [facility] in 2 weeks with any questions or concerns Discharge Disposition: TRANSFER TO SNF/ECF
[2017-04-04 08:48] VITALS: PULSE 96
[2017-04-04] MEDS: MELOXICAM 7.5 MG TAB PO SCH (09:06)
[2017-04-04] MEDS: ASPIRIN 325 MG TAB PO SCH (09:06)
[2017-04-04] MEDS: HYDROCORTISONE 10 MG TAB PO SCH ×2 (09:06→12:04)
[2017-04-04] MEDS: THEOPHYLLINE 24 HOUR 300 MG CAP.ER.24H PO SCH (09:06)
[2017-04-04] MEDS: FUROSEMIDE 20 MG TAB PO SCH (09:06)
[2017-04-04] MEDS: NYSTATIN 100,000 UNIT/ML SUSP 500,000 UNIT/5 ML CUP PO SCH (09:06)
[2017-04-04] MEDS: LACTATED RINGERS 1,000 ML IV SCH (10:35)
[2017-04-04 10:37] LABS: Anion Gap 6 mmol/L; Blood Urea Nitrogen 11 mg/dL (7-17); Calcium 9.7 mg/dL (8.4-10.2); Carbon Dioxide 32 mmol/L (22-30); Chloride 98 mmol/L (98-107); Glucose 116 mg/dL (74-99); Non-African American GFR(MDRD) >60 (>60 ml/min/1.73 sqM); Potassium 4.7 mmol/L (3.5-5.1); Sodium 136 mmol/L (137-145)
[2017-04-04] MEDS: traMADol 50 MG TAB PO PRN ×2 (10:41→10:44)
[2017-04-04] MEDS ORDERED: NA PHOS,M-B/NA PHOS,DI-BA 133 ML ENEMA RECTAL ONE (10:45)
[2017-04-04] MEDS: SODIUM CHLORIDE 0.9% 1,000 ML IV SCH (14:25)
--- NOTE | 2017-04-04 16:52 | P.PN ---
Subjective Progress Note Date: 04/04/17 Progress note being dictated for Dr. Tucker. Interval history:Patient is a pleasant 74-year-old female admitted for elective left hip arthroplasty anterior approach, does have history of 80 renal insufficiency secondary to long-term use of prednisone. Patient at this point of time denied any fever, chills her pain is well-controlled DVT prophylaxis as per primary service. Patient doesn't have a Villalba catheter did not pass gas yet postoperative day 0 no labs available at this time. 04/02/2017: Early this morning had a headache, mild nausea which has subsided. Pain controlled. Passing flatus, no bowel movement. Good diet intake. Maintaining O2 sats of 94% on 3 L nasal cannula; patient normally wears 2 L at home. Vital signs stable. Afebrile. 04/03/2017) ambulated in hallway with physical therapy, tolerating increase in exertion well, denies lightheadedness dizziness or focal deficits. No bowel movement, passing flatus. Denies chest pain, palpitations or increased shortness of breath. Denies cough. T-max 100.6, normal WBC. Magnesium 1.5. Pain controlled. 04/04/2017. He ambulated in the hallway yesterday with physical therapy, complains of mild increased soreness this morning. Diet intake improving. Passing flatus, no bowel movement. Denies lightheadedness dizziness or focal deficits. Denies chest pain, palpitations or increasing shortness of breath. Afebrile, cultures pending. Sodium improved, 136, mild tachycardia, low 100s, IV fluids discontinued. Chest x-ray clear. Patient's KEYSHAWN inhibitor currently remains on hold with systolic blood pressures ranging from 90s to low 130s. Discharge planning in progress for subacute rehab as per orthopedics in progress for today. Objective - Vital Signs Vital signs: Vital Signs Temp 98.5 F 04/04/17 07:17 Pulse 96 04/04/17 08:25 Resp 18 04/04/17 08:00 BP 134/73 04/04/17 07:17 Pulse Ox 97 04/04/17 07:17 Intake & Output 04/03/17 04/04/17 04/04/17 18:59 06:59 18:59 Intake Total 400 480 Balance 400 480 Intake: Oral 400 480 Other: Voiding Method Toilet Toilet Toilet # Voids 2 1 2 - Exam PHYSICAL EXAM: VITAL SIGNS: [As above] GENERAL: Sitting up in bed, no acute distress HEENT: Conjunctivae normal. eyes normal. Oral mucosa moist, NECK: No JVD. No thyroid enlargement. No LNs CARDIOVASCULAR: S1, S2 muffled. No murmur RESPIRATION: Breath sounds diminished in the bases. No rhonchi or crackles. ABDOMEN: Soft, nontender . No guarding. no masses palpable. Bowel sounds heard. MUSCULOSKELETAL: Deferred to orthopedic surgeon EXTREMITIES: No cyanosis, clubbing or pedal edema PSYCHIATRY: Alert and oriented -3, mood and affect normal. NERVOUS SYSTEM: Cranial N 2-12 grossly normal. Moves all 4 limbs. Diffuse weakness No focal deficits. No sensory deficit. - Labs CBC & Chem 7: 04/04/17 06:34 04/04/17 06:34 Labs: Abnormal Lab Results - Last 24 Hours (Table) 04/04/17 04/04/17 Range/Units 06:34 06:34 RBC 3.55 L (3.80-5.40) m/uL Hgb 10.0 L (11.4-16.0) gm/dL Hct 32.7 L (34.0-46.0) % MCHC 30.6 L (31.0-37.0) g/dL Sodium 136 L (137-145) mmol/L Carbon Dioxide 32 H (22-30) mmol/L Glucose 116 H (74-99) mg/dL Microbiology - Last 24 Hours (Table) 04/03/17 14:15 Blood Culture - Preliminary Blood No Growth after 24 hours 04/03/17 13:26 Blood Culture - Preliminary Blood No Growth after 24 hours Assessment and Plan Assessment: #1 status post left hip arthroplasty: Pain management and DVT prophylaxis as per primary service. #2 COPD without any acute exacerbation at this point of time. 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 #4 hypertension: Hold off on KEYSHAWN inhibitor to avoid perioperative hypotension #5 severe osteoarthritis #6 obesity, BMI is 37.5 Plan: Continue current medication regime ,monitoring and symptomatic treatment. Aggressive pulmonary toileting. Discharge planning in progress for subacute rehab today as per orthopedics. Follow-up with primary 1 week after discharge from [facility]. Fax final culture results to [facility] PCP- Dr. Palacios. Further recommendations to follow. The impression and plan of care has been dictated as directed. : I performed a history and examination of this patient, discussed the same with the dictator. I agree with the dictator's note ,documented as a scribe. Any additional findings or plans will be noted.
== END 2017-04-04 14:10 | DRG 470 ==
LOC: 2ORMAIN 05:51 → 3SUR 10:13
PROVIDERS: ADMIT Orthopaedic Surgery; ATTEND Orthopaedic Surgery
PROC: 0SRB06A Replacement of Left Hip Joint with Oxidized Zirconium on Polyethylene Synthetic Substitute, Uncemented, Open Approach (ICD-10-PCS; principal; 2017-04-01 07:30)
DX: M16.12 Unilateral primary osteoarthritis, left hip (principal); E27.3 Drug-induced adrenocortical insufficiency; J44.9 Chronic obstructive pulmonary disease, unspecified; T38.0X5A Adverse effect of glucocorticoids and synthetic analogues, initial encounter; E66.9 Obesity, unspecified; H91.90 Unspecified hearing loss, unspecified ear; I10 Essential (primary) hypertension; K21.9 Gastro-esophageal reflux disease without esophagitis; Z79.52 Long term (current) use of systemic steroids; Z87.891 Personal history of nicotine dependence; Z79.82 Long term (current) use of aspirin; Z79.899 Other long term (current) drug therapy
CPT/HCPCS: 71020; 73501; 80048; 81003; 83735; 85025; 86850; 86900; 86901; 87040; 88300; 94640